=== PATIENT | female | born 1990 | race African-American/Black ===

== ENCOUNTER 2018-05-12 15:59 | Emergency (ER) | payer OTHER ==
--- NOTE | 2018-05-12 16:04 | EDPHY ---
HPI/HX/ROS/PE/MDM Narrative: CHIEF COMPLAINT: Cavity search HISTORY OF PRESENT ILLNESS: The patient is a 32 y/o female arriving via EMS for a cavity search. Last night she was brought to this emergency department for altered mentation. She was having both auditory and visual hallucinations. She was then sent over to the behavioral health unit of [facility]. Upon admission to the behavioral health floor, the nurse found a glove with paper in the patient's rectum, so she was sent back to this emergency department for a cavity search. She states to me that during her stay in this emergency department she wrote a note and wrapped it in a glove, which she then placed in her rectum. Denies placing anything in her vagina. No fever, chills, chest pain, shortness of breath, palpitations, vomiting, diarrhea, urinary complaints, headache, lightheadedness. REVIEW OF SYSTEMS: Aside from elements discussed in the HPI, a comprehensive 10-point review of systems was reviewed and is negative. PAST MEDICAL HISTORY: No medical history. Family history, paternal grandmother , of psychiatric illness with inpatient psychiatric admissions. Mother with history of auditory hallucinations. SOCIAL HISTORY: Lives in [place], employed, single VITAL SIGNS: Reviewed by me GENERAL: Cooperative, well-developed, well-nourished, resting comfortably in no respiratory distress. HEENT: Normal exam. CV: Regular rate and rhythm, no respiratory distress. ABD: Benign. PELVIC: No FB visualized with speculum exam. No fb palpated on bimanual. Small amount of vaginal discharge. RECTAL: No foreign bodies palpated on digital rectal exam. EXTREMITIES: No trauma. No edema. Range of motion is normal throughout. NEURO: Alert and oriented, grossly nonfocal. SKIN: Warm and dry, no rash. PSYCHIATRIC: Pressured speech. Portions of this note were transcribed by a medical collections. I personally performed a history, physical exam, medical decision making, and confirmed accuracy of information the transcribed note. ED Course: The patient is a 32 y/o female arriving via EMS for a cavity search after behavioral health found a glove with paper, inside of the patient's rectum. On exam I did not find any foreign bodies in her rectum or vagina. There was a small amount of vaginal discharge; I sent a wet mount for bacterial vaginosis and trichomonas testing. UA ordered as well. 1600: I met EMS upon arrival. Patient was cooperative and seemed to understand need for examination. Exam done with nurse Pauline present in room for full exam. 1620: Patient is safe to return to the behavioral health unit. MDM: Diff dx considered included but no limited to rectal foreign body, vaginal foreign body, vaginitis, psychotic illness. General Initial Vital Signs: Initial Vital Signs Temperature (C) 38.2 C 05/12/18 16:07 Heart Rate 130 H 05/12/18 16:07 Respiratory Rate 24 H 05/12/18 16:07 Blood Pressure 132/108 H 05/12/18 16:07 O2 Sat (%) 100 05/12/18 16:07 O2 Delivery Mode Room Air Allergies/Adverse Reactions: No Known Allergies Allergy (Unverified 05/14/18 02:09) Home Medications: Medication Instructions Recorded NK [No Known Home Meds] 05/14/18 Departure - Departure Disposition: [facility] IP Clinical Impression: cavity search, Acute psychosis Condition: Fair Referrals: NONE *PRIMARY CARE P,. [Primary Care Provider] - As per Instructions Report Scribed for: Margie Dickinson Report Scribed by: Viri Sinclair Date of Report: 05/12/18 Time of Report: 16:00
[2018-05-12 16:15] VITALS: BP 132/108
[2018-05-13 13:01] LABS: GC AMPLIFICATION GENPROBE NEGATIVE (NEGATIVE)
== END 2018-05-12 16:30 ==
LOC: EDUNIT#
DX: F23 Brief psychotic disorder (principal)